=== PATIENT | female | born 1955 | race Caucasian/White ===

== ENCOUNTER 2017-04-04 20:06 | Emergency (ER) | payer BC ==
--- NOTE | 2017-04-04 20:10 | PDOC ---
History of Present Illness - General Chief Complaint: Pain, Acute Stated Complaint: LOW BACK PAIN Time Seen by Provider: 04/04/17 20:09 History Source: Patient Exam Limitations: No Limitations - History of Present Illness Initial Comments: 04/04/17 20:22 This is a 61-year-old female who has a long history of chronic low back pain and back spasms. Patient said that intermittently they flareup. Usually only a few times a year. However patient is now experiencing a flare. Patient said she had her last flare only about a month ago. Patient said this is unusual in that her flareups are closer together otherwise typical. Patient denies any change in her bowel or bladder habits. She denies any constipation unable to urinate or defecate or loss of continence. Patient denies any fevers, chills, nausea vomiting or diarrhea. Patient denies any radiation down her leg. Patient denies any associated numbness weakness or loss of strength in her lower extremities. Patient saw her primary care doctor and was started on Robaxin and meloxicam. In addition to that patient said she has some hydrocodone that she took without relief as well. PAST MEDICAL HISTORY: no significant history PAST SURGICAL HISTORY: no significant history FAMILY HISTORY: no pertinant history SOCIAL HISTORY: Pt lives with family and is employed. MEDICATIONS: reviewed ALLERGIES: As per nursing notes Review of Systems General: No fevers or chills, no weakness, no weight loss HEENT: No change in vision. No sore throat,. No ear pain CardioVascular: No chest pain or shortness of breath Respiratory:No cough, or wheezing. Gastrointestinal: no nausea, vomitting, diarrhea or constipation, No rectal bleeding Genitourinary: No dysuria, hematuria, or frequency Musculoskeletal: No joint or muscle pain or swelling Neurologic: No headache, vertigo, dizziness or loss of consciousness Psychiatric: nor depression Skin: No rashes or easy bruising Endocrine: no increased thirst or abnormal weight change Allergic: no skin or latex allergy All other systems reviewed and normal GENERAL: The patient is awake, alert, and fully oriented, in no acute distress. HEAD: Normal with no signs of trauma. BACK: There is marked spasm right paraspinal muscles from just below the ribs to approximately the pelvic bone. There is no spinal tenderness on palpation. Pain is not affected by straight leg raising. EYES: Pupils equal, round and reactive to light, extraocular movements intact, sclera anicteric, conjunctiva clear. EXTREMITIES: Normal range of motion, no edema. NEUROLOGICAL: Normal speech, antalgic gait, sensation and motor of bilateral lower extremities are intact. PSYCH: Normal mood, normal affect. SKIN: Warm, Dry, normal turgor, no rashes or lesions noted. 2114 patient feels better after first value however still is having significant amount of discomfort so gave her a second shot of Valium. 21:45 Patient said that second shot is starting to work and she wants to go ahead and go home and go to bed before it fully kicks in so that she isn't too drowsy trying to get home her will be driving her home though Patient will follow-up with her primary care DrJovanna on Thursday if not improved Past History - Past Medical History Allergies/Adverse Reactions: Allergies Allergy/AdvReac Type Severity Reaction Status Date / Time clarithromycin [From Biaxin] Allergy Verified 04/04/17 20:07 Home Medications: Ambulatory Orders Diazepam [Valium] 5 mg PO Q8H PRN #15 tablet MDD 3 04/04/17 Nebivolol HCl [Bystolic] 5 mg PO DAILY 04/04/17 Omeprazole 20 mg PO DAILY 04/04/17 Rosuvastatin Calcium [Crestor] 15 mg PO DAILY 04/04/17 *DC/Admit/Observation/Transfer Diagnosis at time of Disposition: Acute exacerbation of chronic low back pain - Discharge Dispostion Disposition: HOME Condition at time of disposition: Stable Admit: No - Prescriptions Prescriptions: Diazepam [Valium] 5 mg PO Q8H PRN #15 tablet MDD 3 PRN Reason: Back Pain - Referrals Referrals: Jonathon Ferrer MD [Primary Care Provider] - - Patient Instructions Additional Instructions: I have sent a prescription to the pharmacy for a muscle relaxant. You can take it as often as 3 times a day however it will make you drowsy so you cannot work or drive a car or do anything that requires your concentration while taking it. Otherwise continue your other medications as prescribed. Follow-up with your orthopedist on Thursday. If you need an orthopedist call Dr. Cotton at [phone] in the morning for an appointment Return to the emergency department immediately with ANY new, persistent or worsening symptoms. Continue any medications as previously prescribed by your physician. You should follow up with your primary doctor as soon as possible regarding today's emergency department visit. . Please make sure your doctor reviews the results of your emergency evaluation. Thank you for coming to the Emergency Department today for your care. It was a pleasure to see you today. Please note that your evaluation is INCOMPLETE until you follow-up with your doctor. - Post Discharge Activity
[2017-04-04 20:11] VITALS: BP 155/96; PULSE 87; TEMP 97.4; BMI 25.4
[2017-04-04] MEDS ORDERED: KETOROLAC TROMETHAMINE 60 MG/2 ML VIAL IM ONE (20:20)
[2017-04-04] MEDS ORDERED: diazePAM 5 MG TABLET PO STA (20:20)
[2017-04-04] MEDS ORDERED: DEXAMETHASONE 4 MG TABLET (FP) PO STA (20:21)
[2017-04-04] MEDS ORDERED: KETOROLAC TROMETHAMINE 60 MG/2 ML VIAL ONE (20:23)
[2017-04-04] MEDS ORDERED: DEXAMETHASONE 4 MG TABLET (FP) ONE (20:23)
[2017-04-04] MEDS ORDERED: diazePAM 5 MG TABLET ONE (20:23)
[2017-04-04] MEDS ORDERED: diazePAM CARPU-JECT 10 MG/2 ML DISP.SYRIN IM ONE (21:25)
[2017-04-04] MEDS ORDERED: diazePAM CARPU-JECT 10 MG/2 ML DISP.SYRIN ONE (21:33)
== END 2017-04-04 21:40 | disposition home or self-care (01) ==
LOC: MERGE 20:06 → FER 20:06
PROC: 3E033NZ Introduction of Analgesics, Hypnotics, Sedatives into Peripheral Vein, Percutaneous Approach (ICD-10-PCS; principal; 2017-04-04)
PROC: 3E0333Z Introduction of Anti-inflammatory into Peripheral Vein, Percutaneous Approach (ICD-10-PCS; 2017-04-04)
DX: M54.5 Low back pain (principal)
CPT/HCPCS: 99282-25

== ENCOUNTER 2020-11-12 04:48 | Day surgery (SDC) | payer BC ==
[2020-11-09 15:51] VITALS: BMI 27.9
[2020-11-12 08:52] VITALS: TEMP 97.6
[2020-11-12 09:43] VITALS: PULSE 68
[2020-11-12 10:02] VITALS: BP 146/61
== END 2020-11-12 09:55 | disposition home or self-care (01) ==
LOC: JASU-ENDO 04:48
PROVIDERS: ATTEND Internal Medicine Gastroenterology
PROC: 0DB68ZX Excision of Stomach, Via Natural or Artificial Opening Endoscopic, Diagnostic (ICD-10-PCS; 2020-11-12)
PROC: 0DJD8ZZ Inspection of Lower Intestinal Tract, Via Natural or Artificial Opening Endoscopic (ICD-10-PCS; principal; 2020-11-12 08:14)
PROC: 0DB98ZX Excision of Duodenum, Via Natural or Artificial Opening Endoscopic, Diagnostic (ICD-10-PCS; 2020-11-12 08:14)
DX: Z12.11 Encounter for screening for malignant neoplasm of colon (principal); Z86.010 Personal history of colon polyps; K64.8 Other hemorrhoids; K57.30 Diverticulosis of large intestine without perforation or abscess without bleeding; K29.00 Acute gastritis without bleeding; K31.7 Polyp of stomach and duodenum
CPT/HCPCS: 43239; G0105; 88305-TC; 88342-TC

== ENCOUNTER 2021-04-17 04:23 | Day surgery (SDC) | payer BC ==
[2021-04-16 13:24] VITALS: BMI 27.2
[2021-04-17] MEDS ORDERED: MIDAZOLAM HCL 2 MG/2 ML SINGLE DOSE VIAL ONE (08:08)
[2021-04-17] MEDS ORDERED: PROPOFOL 20 ML ONE ×2 (08:17→08:32)
[2021-04-17] MEDS ORDERED: ceFAZolin SODIUM 1 GM VIAL IVPB ONE (08:23)
[2021-04-17] MEDS ORDERED: ceFAZolin SODIUM 1 GM VIAL ONE (08:24)
[2021-04-17] MEDS ORDERED: DESFLURANE GAS 240 ML BOTTLE IH ONE (08:30)
[2021-04-17] MEDS ORDERED: LIDOCAINE HCL 1%, 10 MG/ML (20ML VIAL) INF ONE (08:39)
[2021-04-17] MEDS ORDERED: BUPIVACAINE HCL/PF 0.5% (5MG/ML) 10 ML VIAL IJ ONE (08:39)
[2021-04-17 12:24] VITALS: BP 112/60; PULSE 80; TEMP 97.3
== END 2021-04-17 12:15 | disposition home or self-care (01) ==
LOC: JASU-SURG 04:23
PROVIDERS: ATTEND Orthopaedic Surgery
PROC: 0LB60ZZ Excision of Left Lower Arm and Wrist Tendon, Open Approach (ICD-10-PCS; 2021-04-17)
PROC: 0LN60ZZ Release Left Lower Arm and Wrist Tendon, Open Approach (ICD-10-PCS; principal; 2021-04-17 08:00)
DX: M65.4 Radial styloid tenosynovitis [de Quervain] (principal)
CPT/HCPCS: 88304-TC

== ENCOUNTER 2021-10-09 08:00 | Emergency (ER) | payer BC ==
[2021-10-09 08:15] VITALS: BMI 26.4
[2021-10-09] MEDS ORDERED: KETOROLAC TROMETHAMINE 30 MG/1 ML VIAL IVPUSH ONE (08:27)
[2021-10-09] MEDS ORDERED: SODIUM CHLORIDE 500 ML IV STA (08:27)
[2021-10-09] MEDS ORDERED: KETOROLAC TROMETHAMINE 15 MG/ML VIAL ONE (08:29)
[2021-10-09 09:06] LABS: HEMATOCRIT 37.8 % (32.4-45.2); HEMOGLOBIN 12.9 G/dL (10.7-15.3); MCH 30.6 pg (25.7-33.7); MEAN CELL VOLUME 89.9 fl (80-96); WHITE BLOOD COUNT 8.9 10^3/uL (4.0-10.8)
[2021-10-09 09:07] LABS: MEAN PLT VOLUME 10.4 fl (7.5-11.1); PLATELET COUNT 197.2 10^3/uL (134-434); RDW 14.4 % (11.6-15.6)
[2021-10-09 09:08] LABS: ALBUMIN 4.1 g/dl (3.4-5.0); BILIRUBIN,TOTAL 0.7 mg/dl (0.2-1); CALCIUM 9.6 mg/dl (8.5-10); CREATININE 0.8 mg/dl (0.55-1.3); TOT PROT 6.6 g/dl (6.4-8.2)
[2021-10-09 10:19] LABS: EPITHELIAL CELLS MODERATE /hpf
[2021-10-09] MEDS ORDERED: SULFAMETHOXAZOLE/TRIMETHOPRIM 800MG/160MG D.S. TABLET PO ONE (11:11)
[2021-10-09] MEDS ORDERED: SULFAMETHOXAZOLE/TRIMETHOPRIM 800MG/160MG D.S. TABLET ONE (11:15)
[2021-10-09 12:35] VITALS: BP 130/60; PULSE 82; TEMP 98.8
== END 2021-10-09 13:07 | disposition home or self-care (01) ==
LOC: FER 08:00
PROC: 3E0333Z Introduction of Anti-inflammatory into Peripheral Vein, Percutaneous Approach (ICD-10-PCS; principal; 2021-10-09)
PROC: 3E0337Z Introduction of Electrolytic and Water Balance Substance into Peripheral Vein, Percutaneous Approach (ICD-10-PCS; 2021-10-09)
DX: N10 Acute pyelonephritis (principal)
CPT/HCPCS: 36415; 74176-TC; 80053; 81003; 81015; 85025; 87086; 87186; 99285-25